=== PATIENT | female | born 1955 | race Caucasian/White ===

== ENCOUNTER 2018-10-10 18:14 | Emergency (ER) | payer MEDICARE, OTHER ==
[2018-10-10] MEDS ORDERED: Sodium Chloride 0.9% 10 ML Syringe FLUSH PRN (18:40)
[2018-10-10 19:21] VITALS: BP 143/88; PULSE 110
[2018-10-10 19:25] LABS: CHLORIDE,CL 107 mmol/L (98-107); SODIUM,NA 144 mmol/L (136-145)
[2018-10-10 19:30] LABS: ANION GAP 15.8 mmol/L (10-20)
--- NOTE | 2018-10-11 18:00 | EDM.PDOC ---
ED HPI GENERAL MEDICAL PROBLEM - General Chief Complaint: Cardiovascular Problem Stated Complaint: FAST HEART RATE Time Seen by Provider: 10/10/18 19:52 Source of Information: Reports: Patient History Limitations: Reports: No Limitations - History of Present Illness INITIAL COMMENTS - FREE TEXT/NARRATIVE: PtMoris presents to ER with complaints of palpitations. She states that her Smart Watch indicated that her heart rate was 180 earlier in the day. She has a history of SVT with the last episode being in May. She perviously had been on Metoprolol for this but has stopped taking it. She is a patient of Anuja Jacome. She denies any chest pain or shortness of breath. She states that the palpitations resolved prior to arrival to ER. Denies any nausea, vomiting, or lightheadedness. Denies any new medications or drug use. Onset: Today Onset Date: 10/11/18 - Related Data Allergies Allergy/AdvReac Type Severity Reaction Status Date / Time No Known Allergies Allergy Verified 10/10/18 18:36 Home Meds: Home Meds . [No Known Home Meds] 10/10/18 [History] Past Medical History HEENT History: Reports: Other (See Below) Other HEENT History: presbyopia. keratoconus. myopia. astigmatism Cardiovascular History: Reports: None, Other (See Below) Other Cardiovascular History: tachycardia Respiratory History: Reports: None Gastrointestinal History: Reports: GERD Genitourinary History: Reports: None HARBOR MASTER History: Reports: Other (See Below) Other HARBOR MASTER History: hx of dysfunctional uterine bleeding Neurological History: Reports: None Psychiatric History: Reports: None Endocrine/Metabolic History: Reports: Obesity/BMI 30+ Hematologic History: Reports: None Immunologic History: Reports: None Oncologic (Cancer) History: Reports: None - Past Surgical History Head Surgeries/Procedures: Reports: None Musculoskeletal Surgical History: Reports: Arthroscopic Knee Oncologic Surgical History: Reports: None Social & Family History - Tobacco Use Smoking Status *Q: Never Smoker - Recreational Drug Use Recreational Drug Use: No ED ROS GENERAL - Review of Systems Review Of Systems: See Below Constitutional: Reports: No Symptoms HEENT: Reports: No Symptoms Respiratory: Reports: No Symptoms Cardiovascular: Reports: Palpitations. Denies: Chest Pain, Dyspnea on Exertion , Edema, Orthopnea, PND Endocrine: Reports: No Symptoms GI/Abdominal: Reports: No Symptoms : Reports: No Symptoms Musculoskeletal: Reports: No Symptoms Skin: Reports: No Symptoms Neurological: Reports: No Symptoms Psychiatric: Reports: No Symptoms Immunologic: Reports: No Symptoms ED EXAM, GENERAL - Physical Exam Exam: See Below Exam Limited By: No Limitations General Appearance: Alert, WD/WN, No Apparent Distress Throat/Mouth: Normal Inspection, Normal Lips, Normal Teeth, Normal Gums, Normal Oropharynx, Normal Voice, No Airway Compromise Head: Atraumatic, Normocephalic Neck: Normal Inspection, Supple, Non-Tender, Full Range of Motion Respiratory/Chest: No Respiratory Distress, Lungs Clear, Normal Breath Sounds, No Accessory Muscle Use, Chest Non-Tender Cardiovascular: Normal Peripheral Pulses, Regular Rate, Rhythm, No Edema, No JVD , No Murmur, No Rub Peripheral Pulses: 4+: Radial (L), Radial (R) GI/Abdominal: Normal Bowel Sounds, Soft, Non-Tender, No Organomegaly, No Distention, No Abnormal Bruit, No Mass, Pelvis Stable (Female) Exam: Deferred Rectal (Female) Exam: Deferred Back Exam: Normal Inspection, Full Range of Motion Extremities: Normal Inspection, Normal Range of Motion, Non-Tender, No Pedal Edema, Normal Capillary Refill Neurological: Alert, Oriented, CN II-XII Intact, Normal Cognition, Normal Gait, Normal Reflexes, No Motor/Sensory Deficits Psychiatric: Normal Affect, Normal Mood Skin Exam: Warm, Dry, Intact, Normal Color, No Rash Lymphatic: No Adenopathy EKG INTERPRETATION Rhythm: NSR Geddes: Normal P-Wave: Present QRS: Normal ST-T: Normal QT: Normal Course - Vital Signs Last Recorded V/S: Last Vital Signs Temp 36.7 C 10/10/18 18:14 Pulse 110 H 10/10/18 18:14 Resp 16 10/10/18 18:14 BP 143/88 H 10/10/18 18:14 Pulse Ox 95 10/10/18 18:14 - Orders/Labs/Meds Orders: Active Orders 24 hr Category Date Time Status EKG Documentation Completion [RC] STAT Care 10/10/18 18:40 Active Peripheral IV Insertion Adult [OM.PC] Routine Oth 10/10/18 18:41 Ordered Labs: Laboratory Tests 10/10/18 10/10/18 10/10/18 Range/Units 18:41 18:41 18:41 WBC 5.9 (4.0-10.0) x10^3/uL RBC 5.22 (4.00-5.50) x10^6/uL Hgb 16.0 (12.0-16.0) g/dL Hct 46.8 (33.0-47.0) % MCV 89.7 (78.0-93.0) fL MCH 30.7 (26.0-32.0) pg MCHC 34.2 (32.0-36.0) g/dL RDW Coeff of Izabella 13.2 (10.0-15.0) % Plt Count 241 (130-400) x10^3/uL Neut % (Auto) 56.0 (50.0-80.0) % Lymph % (Auto) 29.8 (25.0-50.0) % Page % (Auto) 8.8 (2.0-11.0) % Eos % (Auto) 4.2 H (0.0-4.0) % Baso % (Auto) 1.2 (0.2-1.2) % PT 9.7 L (10.0-12.8) SEC INR 0.9 L (2.0-3.5) Sodium 144 (136-145) mmol/L Potassium 3.8 (3.5-5.1) mmol/L Chloride 107 (98-107) mmol/L Carbon Dioxide 25 (21-32) mmol/L Anion Gap 15.8 (10-20) mmol/L BUN 16 (7-18) mg/dL Creatinine 0.9 (0.55-1.02) mg/dL Est Cr Clr Drug Dosing 60.60 mL/min Estimated GFR (MDRD) > 60 Glucose 105 (74-106) mg/dL Calcium 9.1 (8.5-10.1) mg/dL Corrected Calcium 9.02 (8.5-10.1) mg/dL Phosphorus 3.5 (2.6-4.7) mg/dL Magnesium 2.3 (1.8-2.4) mg/dL Total Bilirubin 0.8 (0.2-1.0) mg/dL AST 21 (15-37) U/L ALT 28 (14-59) U/L Alkaline Phosphatase 95 (46-116) U/L Troponin I < 0.017 (<=0.056) ng/mL Total Protein 7.7 (6.4-8.2) g/dL Albumin 4.1 (3.4-5.0) g/dL Globulin 3.6 Albumin/Globulin Ratio 1.14 TSH, Ultra Sensitive 2.800 (0.358-3.74) uIU/mL Meds: Medications Discontinued Medications Generic Name Dose Route Start Last Admin Trade Name Freq PRN Reason Stop Dose Admin Sodium Chloride 10 ml 10/10/18 18:40 Saline Flush FLUSH ASDIRECTED PRN Keep Vein Open Departure - Departure Time of Disposition: 19:52 Disposition: Home, Self-Care 01 Clinical Impression: Palpitations Instructions: Supraventricular Tachycardia, Adult Referrals: Anuja Jacome MD [Primary Care Provider] - Forms: ED Department Discharge Additional Instructions: Home to rest. Drink plenty of fluids. Return to ER if you have heart rate consistently over 150 for more than an hour. Follow-up with your PCP next week. - My Orders Last 24 Hours: My Active Orders 10/10/18 18:40 EKG Documentation Completion [RC] STAT 10/10/18 18:41 Peripheral IV Insertion Adult [OM.PC] Routine - Assessment/Plan Last 24 Hours: My Active Orders 10/10/18 18:40 EKG Documentation Completion [RC] STAT 10/10/18 18:41 Peripheral IV Insertion Adult [OM.PC] Routine Plan: Heart rate decreased into the range of approx. 80-110 and palpitations resolved prior to arrival. Pt. was offered to start her metoprolol again to decrease the chance of this happening again but she refuses. She was subsequently discharged and advised to return of the symptoms redevelop. Follow-up with your PCP or olive grader DIANA.
== END 2018-10-10 19:52 | disposition home or self-care (01) ==
LOC: VM.ED 18:14
DX: R00.2 Palpitations (principal)
CPT/HCPCS: 80053; 83735; 84100; 84443; 84484; 85025; 85610; 93005; 93010; 99284-GF; 99285-25